=== PATIENT | female | born 1990 | race Caucasian/White ===

== ENCOUNTER 2021-09-01 08:10 | Outpatient (RCR) | payer BC, SELFPAY ==
[2021-09-01] MEDS: FAMOTIDINE 20 MG TABLET PO (11:56)
[2021-09-01] MEDS: diphenhydrAMINE HCl CAP 25 MG CAPSULE PO (11:56)
[2021-09-01] MEDS: ACETAMINOPHEN 325 MG TABLET 650 MG PO (11:56)
[2021-09-01 11:58] VITALS: BP 130/76; PULSE 65; RESP 20; TEMP 36.1; O2SAT 99
[2021-09-01 13:37] VITALS: BP 120/71
--- NOTE | 2021-09-02 09:37 | PC.NURSE ---
Called Ms Potter and she stated she is feeling so much better, infact she stated I am doing Great, thank you so much . She had no other questions at this time.
== END 2021-09-01 17:00 ==
LOC: AMCINF 08:10
PROVIDERS: PCP Physician Assistant; Visit Provider Internal Medicine Hematology & Oncology
DX: U07.1 COVID-19 (principal)
CPT/HCPCS: A9270; M0245; Q0245